=== PATIENT | male | born 1930 ===

== ENCOUNTER 2018-06-07 12:29 | Outpatient (CLI) | payer OTHER ==
[~2018-06-07 12:29] MED LIST: B-COMPLEX WIT400 MCG PO; CALCIUM; CARVEDILOL25 MG; COREG CR10 MG; COZAAR100 MG PO; EFFEXOR XR150 MG; FENOFIBRATE160 MG; GUANFACINE HCL1 MG; HYDRALAZINE HC100 MG; HYDRALAZINE HCL50 MG; HYDROCHLOROTHIA25 MG PO; LEVAQUIN750 MG PO; MEDROL4 MG PO; METAMUCIL1 PKT; METHOCARBAMOL500 MG PO; MICARDIS40 MG; MICARDIS80 MG; OSEL75CA PO; PROSCAR5 MG PO; TEKTURNA150 MG; TENEX1 MG; TESSALON PERLE100 M1 PO; TRICOR145 MG; TUSSI PRES-B L120 M1 PO; TUSSI-PRES LIQ118 ML PO; VIT D3 2000 IU; XOPENEX0.63 MG/3 IH; [UNRECOGNIZED DRUG - OTHER]
== END 2018-06-07 12:33 | disposition home or self-care (01) ==
LOC: EKG 12:29
DX: R07.89 Other chest pain (principal)

== ENCOUNTER 2019-01-02 10:44 | Outpatient (CLI) | payer OTHER | END 2019-01-02 10:49 | disposition home or self-care (01) | LOC: RAD 501 10:44 | DX: J45.998 Other asthma (principal) ==

== ENCOUNTER 2019-04-19 10:21 | Outpatient (CLI) | payer OTHER | END 2019-04-19 10:23 | disposition home or self-care (01) | LOC: RAD 10:21 | DX: M10.071 Idiopathic gout, right ankle and foot (principal) ==

== ENCOUNTER 2019-05-09 12:01 | Outpatient (CLI) | payer OTHER | END 2019-05-09 12:03 | disposition home or self-care (01) | LOC: RAD 12:01 | DX: S32.000A Wedge compression fracture of unspecified lumbar vertebra, initial encounter for closed fracture (principal) ==

== ENCOUNTER 2020-06-11 11:41 | Outpatient (CLI) | payer OTHER | END 2020-06-11 11:49 | disposition home or self-care (01) | LOC: TOM 11:41 | PROVIDERS: ATTEND Specialist | DX: K42.9 Umbilical hernia without obstruction or gangrene (principal); K57.32 Diverticulitis of large intestine without perforation or abscess without bleeding; K80.80 Other cholelithiasis without obstruction ==

== ENCOUNTER → 2020-06-15 | Outpatient (CLI) | payer OTHER | END | disposition home or self-care (01) | LOC: SONOGRAMA 10:10 | PROVIDERS: ATTEND Specialist | DX: Q61.02 Congenital multiple renal cysts (principal); C79.01 Secondary malignant neoplasm of right kidney and renal pelvis; C64.1 Malignant neoplasm of right kidney, except renal pelvis ==

== ENCOUNTER 2020-07-20 07:32 | Outpatient (CLI) | payer OTHER | END 2020-07-20 07:44 | disposition home or self-care (01) | LOC: NUCLEAR 07:32 | PROVIDERS: ATTEND Specialist | DX: K80.10 Calculus of gallbladder with chronic cholecystitis without obstruction (principal) | CPT/HCPCS: 78227; A9537; J2805 ==

== ENCOUNTER → 2021-02-04 12:02 | Outpatient (CLI) | payer OTHER | END | disposition home or self-care (01) | LOC: RAD 12:02 | PROVIDERS: ATTEND Specialist | DX: J45.998 Other asthma (principal) ==

== ENCOUNTER 2021-08-19 10:11 | Outpatient (CLI) | payer OTHER | END 2021-08-19 10:16 | disposition home or self-care (01) | LOC: RAD 10:11 | PROVIDERS: ATTEND Specialist | DX: M54.59 Other low back pain (principal); M54.10 Radiculopathy, site unspecified; M25.552 Pain in left hip; M25.551 Pain in right hip ==

== ENCOUNTER 2021-10-29 11:27 | Outpatient (CLI) | payer OTHER | END 2021-10-29 11:37 | disposition home or self-care (01) | LOC: MRI 11:27 | PROVIDERS: ATTEND Specialist | DX: G54.4 Lumbosacral root disorders, not elsewhere classified (principal) | CPT/HCPCS: 72148 ==